=== PATIENT | female | born 1960 | race Caucasian/White ===

== ENCOUNTER 2017-04-04 06:34 | Inpatient (IN) | payer OTHER ==
[~2017-04-04] VITALS: Ht 167.6 cm; Wt 47.2 kg
--- NOTE | ~2017-04-04 | DS ---
[place], [place] DISCHARGE SUMMARY NAME: KEARA SALAZAR UNIT #: [id number] ROOM: 314 DOCTOR: JENNIFER MICHAEL BIRTHDATE: [birth year] DOS: 04/09/2017 CHIEF COMPLAINT: "I am ready to go home." HISTORY OF PRESENT ILLNESS: She is a 57-year-old white female who came to the behavioral health unit from [facility]. She was on her balcony naked, delusional, yelling out. She states that her physical body was not here. She was uncooperative and so she was transferred from [facility] to [place] to be admitted to the behavioral health unit for medication stabilization. PAST MEDICAL HISTORY: Arthritis, asthma, back pain, depression, RSD. She does have a history of skin cancer as well. SUMMARY OF HOSPITAL COURSE: She was treated for a urinary tract infection on admission with a single dose of fosfomycin. Her Cymbalta was increased while she was here for both depression and pain, she has a history of chronic pain. Daughter stated that she has a history of bipolar disorder as well so those medications have been adjusted since she has been here. Her vitamin B12 level was low and so she was given a B12 injection. She was also started on Zyprexa 5 mg at bedtime, was increased to 10 mg in order to augment the Cymbalta and stabilize her mood and improve her sleep. MENTAL STATUS AT DISCHARGE: She is alert, oriented, conversant. Mood and affect are appropriate. She denies any suicidal ideation. Reports better sleep and better pain control. DIAGNOSIS: Acute psychotic disorder. DISPOSITION: She will be discharged to her home. Her scripts have been printed and will be sent with her for both her Klonopin and her Cymbalta and she is discharged in psychiatrically stable condition. [place], [place] DISCHARGE SUMMARY NAME: KEARA SALAZAR UNIT #: [id number] ROOM: 314 DOCTOR: JENNIFER MICHAEL BIRTHDATE: [birth year] Jennifer Michael NP CM:DISCHARG [id number] JENNIFER MICHAEL 04/12/17 0715 interface
--- NOTE | ~2017-04-04 | PR ---
[place], [place] PROGRESS NOTE [id number] UNIT #: [id number] ROOM: 314 DOCTOR: CARMEN TORIBIO MD BIRTHDATE: [birth year] DOS: 04/07/2017 CHIEF COMPLAINT: "I am still not sleeping at night." SUMMARY OF THE VISIT: The patient was interviewed as she sat in the dining area. She engaged readily in conversation, reporting that she is still not sleeping well and this has been a chronic ongoing problem for her for several years. 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 Otherwise, she reports feeling better. She feels less depressed. She rates her pain level as high and does not feel like the Cymbalta has effectively ____ the pain yet. She does report tolerating the current medication regimen well. MENTAL STATUS: She is alert and oriented. Mood does still seem to be somewhat depressed, but it is trending towards improvement. There is no hypomania or gavin. There are no overt auditory or visual hallucinations. No delusions, no paranoia. Short, intermediate, and long-term memory are intact. ASSESSMENT AND PLAN: Her vitamin B12 level is low therapeutic at 279, so I will go ahead and give her a vitamin B12 injection of 1000 mcg IM today. I will also start her on multivitamin with minerals daily. I will increase her Cymbalta from 60 mg at bedtime to 90 mg at bedtime trying to maximize potential benefit and also increase the Zyprexa from 5 mg at bedtime to 10 mg at bedtime augmenting the effectiveness of the Cymbalta and stabilizing her mood and improving sleep. We will utilize Biofreeze also as a non-addictive pain option. CARMEN TORIBIO MD CM:PNTRANS [id number] CARMEN TORIBIO MD 04/07/17 1005 interface
--- NOTE | ~2017-04-04 | PR ---
[place], [place] PROGRESS NOTE [id number] UNIT #: [id number] ROOM: 314 DOCTOR: CARMEN TORIBIO MD BIRTHDATE: [birth year] DOS: 04/08/2017 CHIEF COMPLAINT: "I slept a little better, I probably got about 5 hours of sleep." SUMMARY OF THE VISIT: The patient was interviewed in the quiet room. She did report that she did sleep a little better and does feel that she is gradually trending towards improvement. She, however, noted that because it was a rainy day yesterday, her bones ached even more and she was in considerable pain and her pain level does seem to be worsening. Mood chavez, she does seem to be less depressed and is voicing positive plans for the future. MENTAL STATUS: She is alert and oriented to person, place and time. Mood does seem to be trending towards euthymia and affect is more appropriate. There are no symptoms of gavin or hypomania. There are no overt auditory or visual hallucinations. No delusions, no paranoia present. Short, intermediate, and long-term memory are intact. PLAN: I will go ahead and maximize the dose of Cymbalta from 90 mg at bedtime to 120 mg at bedtime in order to combat depression, anxiety and reduce pain. I will also order her some Bengay t.i.d. to see if we can also impact positively on pain control, engage in individual and paredes milieu activity with the ultimate plan to return home when psychiatrically stable. CARMEN TORIBIO MD CM:PNTRANS [id number] CARMEN TORIBIO MD 04/08/17 1024 interface
[2017-04-04] MEDS ORDERED: AMBIEN10 M1 PO (10:43)
[2017-04-04] MEDS ORDERED: CLONAZEPAM0.5 M2 PO (10:44)
[2017-04-04] MEDS ORDERED: EPIPEN 2-PAK1 MG/ML IM (10:44)
[2017-04-04] MEDS ORDERED: NASACORT A55 MCG/Act NAS (10:46)
[2017-04-04] MEDS ORDERED: IBUPROFEN400 MG PO (10:47)
[2017-04-04] MEDS ORDERED: XOPENEX1.25 MG/3 INH (10:47)
[2017-04-04] MEDS ORDERED: CYCLOBENZAPRINE10 MG PO (10:48)
[2017-04-04] MEDS ORDERED: ASPIRIN81 M1 PO (10:48)
[2017-04-04] MEDS ORDERED: ZANTAC 150150 MG PO (10:49)
[2017-04-04] MEDS ORDERED: GUAIFENESIN600 MG PO (10:49)
[2017-04-04] MEDS ORDERED: PROAIR HFA8.5 GM INH (10:50)
[2017-04-04] MEDS ORDERED: ALVESCO80 MCG/ACT INH ×2 (10:51→10:52)
[2017-04-04 11:21] VITALS: BP 133/79
[2017-04-04] MEDS ORDERED: MACROBID100 M1 PO (11:56)
[2017-04-04 12:31] VITALS: BP 133/79
[2017-04-04 20:05] VITALS: BP 125/72
[2017-04-05 07:56] LABS: BASO # 0.1 10*3/uL (0.0-0.1); BASO % 0.8 % (0.0-1.0); EOS # 0.1 10*3/uL (0.0-0.4); EOS % 1.5 % (1.0-4.0); HEMATOCRIT 44.3 % (37.0-47.0); HEMOGLOBIN 14.6 g/dl (12.0-16.0); LYMPH # 2.4 10*3/uL (1.3-4.4); LYMPH % 39.9 % (27.0-41.0); MEAN CELL VOLUME 97.1 fl (81.0-99.0); MEAN PLATELET VOLUME 9.5 fl (9.6-12.3); MONO # 0.6 10*3/uL (0.1-1.0); MONO % 10.5 % (3.0-9.0); NEUT # 2.9 10*3/uL (2.3-7.9); PLATELET COUNT AUTOMATED 439 10*3/uL (130-400); RED BLOOD COUNT 4.56 10*6/uL (4.10-5.10); RED CELL DISTRI WIDTH 12.1 % (0-14.5); WHITE BLOOD COUNT 6.1 10*3/uL (4.8-10.8)
[2017-04-05 08:02] VITALS: BP 115/80
[2017-04-05 08:23] LABS: ALBUMIN 3.9 gm/dl (3.1-4.5); ALKALINE PHOSPHATASE 97 U/L (45-117); BILIRUBIN, TOTAL 0.6 mg/dl (0.2-1.0); BUN 20 mg/dl (7-24); CARBON DIOXIDE 28 mmol/L (21-32); CHLORIDE 102 mmol/L (98-107); EST GLOM FILT AFRICAN AMERICAN > 60 ml/min; GLUCOSE 93 mg/dL (65-99); SGOT/AST 30 IU/L (3-35); SGPT/ALT 19 U/L (12-78); SODIUM 139 mmol/L (136-145); TOTAL PROTEIN 7.5 gm/dL (6.4-8.2)
[2017-04-05 08:24] LABS: HEMOGLOBIN A1c 5.1 % (4.8-5.6)
[2017-04-05 08:57] LABS: VITAMIN D, 25-HYDROXY 39.1 ng/mL (30-100)
[2017-04-05 08:58] LABS: FOLIC ACID 10.63 ng/mL (>5.38)
[2017-04-05 19:36] VITALS: BP 107/70
[2017-04-06 08:10] VITALS: BP 106/72
[2017-04-06 20:00] VITALS: BP 124/74
[2017-04-07 07:47] VITALS: BP 114/71
[2017-04-07 19:50] VITALS: BP 117/74
[2017-04-08 07:47] VITALS: BP 124/80
[2017-04-08 20:12] VITALS: BP 130/84
[2017-04-09] MEDS ORDERED: DULOXETINE HCL60 MG PO (08:00)
[2017-04-09] MEDS ORDERED: CLONAZEPAM0.5 M2 PO (08:00)
[2017-04-09 08:10] VITALS: BP 121/77
== END 2017-04-09 13:30 | disposition home or self-care (01) | DRG 885 ==
LOC: 3N 06:34
PROVIDERS: Psychiatry & Neurology Psychiatry
DX: F23 Brief psychotic disorder (principal); E44.0 Moderate protein-calorie malnutrition; N39.0 Urinary tract infection, site not specified; G90.50 Complex regional pain syndrome I, unspecified; Z68.1 Body mass index [BMI] 19.9 or less, adult; M19.90 Unspecified osteoarthritis, unspecified site; J45.909 Unspecified asthma, uncomplicated; F32.9 Major depressive disorder, single episode, unspecified; M54.9 Dorsalgia, unspecified; Z85.828 Personal history of other malignant neoplasm of skin; Z88.0 Allergy status to penicillin; Z88.2 Allergy status to sulfonamides; Z88.6 Allergy status to analgesic agent; Z88.1 Allergy status to other antibiotic agents; Z88.8 Allergy status to other drugs, medicaments and biological substances; Z79.1 Long term (current) use of non-steroidal anti-inflammatories (NSAID); Z79.899 Other long term (current) drug therapy